=== PATIENT | male | born 1965 | race Caucasian/White ===

== ENCOUNTER 2018-01-30 07:09 | Day surgery (SDC) | payer BC ==
[~2018-01-30 07:09] MED LIST: ACETAMINOPHEN 1,000 MG/100 ML BTL IV ONE; CLINDAMYCIN PHOS/D5W 900MG 900 MG/50 ML BAG IVPB ONE; FAMOTIDINE 20MG TABLET PO ONE; MECLIZINE 25 MG TABLET PO ONE; METOCLOPRAMIDE 10 MG TABLET PO ONE
[2018-01-30] MEDS ORDERED: FENTANYL PF 100MCG/2ML VIAL IV ONE (07:10)
[2018-01-30] MEDS ORDERED: HYDROMORPHONE HCL 2 MG/ML VIAL IV ONE (07:10)
[2018-01-30] MEDS ORDERED: MORPHINE SULFATE PF 10MG/10ML VIAL IV ONE (07:10)
[2018-01-30] MEDS ORDERED: HYDROCODONE/APAP 7.5/325MG TABLET PO ONE (07:10)
[2018-01-30] MEDS ORDERED: SEVOFLURANE 250 ML INH ONE (07:10)
[2018-01-30] MEDS ORDERED: ROCURONIUM BROMIDE 50MG/5ML VIAL IV ONE (07:10)
[2018-01-30] MEDS ORDERED: MIDAZOLAM HCL 2MG/2ML VIAL IV ONE (07:10)
[2018-01-30] MEDS ORDERED: LIDOCAINE 2% MDV (20MG/ML) 20ML VIAL IV ONE (07:10)
[2018-01-30] MEDS ORDERED: BUPIVACAINE 0.5% W/EPI MPF 30 ML VIAL IVP ONE (07:10)
[2018-01-30] MEDS ORDERED: KETOROLAC 30 MG/ML VIAL IVP ONE (07:10)
[2018-01-30] MEDS ORDERED: PROPOFOL 10 MG/ML VIAL IV ONE (07:10)
[2018-01-30] MEDS ORDERED: SUGAMMADEX SODIUM 200 MG/2 ML VIAL IV ONE (07:10)
--- NOTE | 2018-01-30 21:28 | Operative Note ---
DATE: 01/30/2018. PREOPERATIVE DIAGNOSIS: IMPINGEMENT SYNDROME RIGHT SHOULDER. QUESTION TEAR OF THE ROTATOR CUFF. POSTOPERATIVE DIAGNOSES: 1. 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 2. DIFFUSE SYNOVITIS OF THE RIGHT SHOULDER. 3. COMPLEX GLENOHUMERAL LABRAL TEAR. 4. SUBACROMIAL IMPINGEMENT. 5. ARTHROSIS OF THE RIGHT DISTAL CLAVICLE. PROCEDURE: 1. REPAIR OF A CHRONICALLY TORN RIGHT ROTATOR CUFF TEAR. 2. ARTHROSCOPY RIGHT SHOULDER WITH INTERARTICULAR DEBRIDEMENT. 3. ARTHROSCOPY RIGHT SHOULDER WITH SYNOVECTOMY. 4. RIGHT SHOULDER OPEN ACROMIOPLASTY, CA LIGAMENT RESECTION, SUBACROMIAL BURSECTOMY. 5. RIGHT SHOULDER DISTAL CLAVICLE RESECTION. STAFF SURGEON: VICKY REYES M.D. ANESTHESIA: GENERAL. PREPARATION: CHLORAPREP. INDIVIDUAL CONSIDERATIONS: NONE. PROCEDURE: The patient was taken to the Operating Room and placed supine on the operating table. He had a successful induction with general anesthetic. His right arm and shoulder were prepped and draped in the usual fashion. The patient had a posterior portal identified for arthroscopy. The skin was infiltrated with 0.5% Marcaine with Epinephrine prior. An #18 gauge spinal needle was placed in the joint and the joint was inflated with normal saline with a 30 mL syringe. A stab wound was made and the blunt tip trocar for the scope was placed in the joint and the joint was inflated with normal saline. An anterior accessory portal was then made just inferior to the intact long head of the biceps tendon in a retrograde fashion with a Wissinger rigo and the joint was irrigated out. The patient had diffuse synovitis and this was debrided. Complex labral tear that extended I would say from the 9 to 6 o'clock position but nothing needed to be fixed. The long head was intact. Subscap was normal. Obvious tear of the supraspinatus. After irrigation, portals were closed with ced. The patient had an anterior approach to the subacromial space and distal clavicle. The skin was infiltrated with 0.5% Marcaine with Epinephrine prior. Sharp dissection carried down through the skin and subcutaneous tissue. Small veins were coagulated with a Bovie. An anterior deltoid interval was developed. Care was taken not to split the deltoid more than about 4 cm distal to the anterior tip of the acromion to prevent injury to the axillary nerve. Once in the subacromial space, there was a large hare of fluid consistent with a tear. The deltoid was then taken subperiosteally off the anterior aspect of the acromion, over the top of the intact CA ligament, and off the anterior aspect of the degenerated distal clavicle. The CA ligament was resected with a Bovie. The distal clavicle was resected using an oscillating saw taking bout 1 cm, most of this being spur. The patient had a downsloping acromion with spur and an anterior acromioplasty was performed taking about just under 1 cm anteriorly and tapering to wedge posteromedially to include the spurs at the AC joint. The undersurface was smoothed with a rasp. The patient had a complete bursectomy and I had a good look at the rotator cuff. He had about a 2 cm tear of the supraspinatus. I debrided back the bleeding tendon. There was some irregularity. I then made a small trough in the tuberosity with a felipe and then placed multiple retention sutures into the end of the freshened tendon and had them drawn into the trough with holes going through the tuberosity just distal and pulling it into the trough and tying them down. This was reinforced with a [id number] #1 Ethibond suture, also with a buried knot. This gave us a near -anatomic repair. I put the shoulder through a full range of motion to ensure no further impingement. After irrigation, the deltoid was reattached to the remaining acromion with multiple interrupted #2 Vicryl. The anterior deltoid interval was closed with a running #1 Vicryl. The distal clavicle was closed with a running #2 Vicryl. The subcu was closed with 2-0 Plus Vicryl. The skin was closed with ced. 15 mL of 0.5% Marcaine with Epinephrine along with 10 mg of Morphine were injected into the subacromial space through a sterile #18 gauge needle and a sterile Bulkee compressive dressing was applied along with a sling. The patient tolerated the procedures well. Needle and sponge counts were correct, estimated blood loss was minimal, and he was taken back to Recovery in good condition. There were no complications. cc: Dr. Jayesh Valdez JOB NUMBER: [id number] MTDD
== END 2018-01-30 12:00 | disposition home or self-care (01) ==
LOC: SUR 07:09
PROVIDERS: ATTEND Orthopaedic Surgery
DX: S46.011A Strain of muscle(s) and tendon(s) of the rotator cuff of right shoulder, initial encounter (principal); M65.811 Other synovitis and tenosynovitis, right shoulder; M89.58 Osteolysis, other site; R56.9 Unspecified convulsions
CPT/HCPCS: 23412; 29820; 23120; 01610; J1885; J3010; J1170; J3490 ×2